=== PATIENT | female | born 1960 | race Two or more races ===

== ENCOUNTER 2022-04-03 17:49 | Emergency (ER) | payer OTHER, MEDICAID ==
[~2022-04-03] VITALS: Ht 167.6 cm; Wt 160.0 kg
[2022-04-03 20:15] VITALS: BP 108/75
== END 2022-04-03 21:14 | disposition home or self-care (01) ==
LOC: ER 17:49
DX: S62.306A Unspecified fracture of fifth metacarpal bone, right hand, initial encounter for closed fracture (principal); Z88.8 Allergy status to other drugs, medicaments and biological substances; X50.1XXA Overexertion from prolonged static or awkward postures, initial encounter; Y93.89 Activity, other specified; Y92.89 Other specified places as the place of occurrence of the external cause; Y99.8 Other external cause status
CPT/HCPCS: 29125; 73130